=== PATIENT | male | born 1980 | race Caucasian/White ===

== ENCOUNTER 2022-04-02 10:06 | Outpatient (REF) | payer OTHER, SELFPAY ==
--- NOTE | ~2022-04-02 | XR_ITS ---
EXAMINATION: XR RIBS, RIGHT, WITH PA VIEW OF CHEST CLINICAL INFORMATION: Pleurodynia COMPARISON: None TECHNIQUE: 3 views of the right ribs. Also, PA view of chest.. FINDINGS: Lungs are well expanded. Linear opacity of scar or discoid atelectasis at the left lateral base. No airspace disease. No pneumothorax. The right lateral costophrenic sulcus is slightly blunted. Trace pleural effusion is suspected. Cardiomediastinal silhouette has normal size and contour. There appears to be an acute, nondisplaced fracture of the right anterolateral 10th rib. XR/XR ribs RT min 3V w CXR1V IMPRESSION: * No acute pulmonary disease. * Acute, nondisplaced fracture of the right anterolateral 10th rib. * Trace right pleural effusion is suspected.
[2022-04-02 11:58] LABS: Influenza A PCR NEGATIVE (Negative); Influenza B PCR NEGATIVE (Negative); Resp Syncy Virus RNA Qual PCR NEGATIVE (Negative); SARS COV2 PCR INHOUSE NEGATIVE (Negative)
== END 2022-04-02 10:07 | disposition home or self-care (01) ==
LOC: HO.HMGCX 10:06
PROVIDERS: PCP Family Medicine; Visit Provider Family Medicine
DX: Z20.822 Contact with and (suspected) exposure to COVID-19 (principal); R07.81 Pleurodynia; B34.9 Viral infection, unspecified
CPT/HCPCS: 0241U; 71101

== ENCOUNTER 2022-08-17 11:29 | Day surgery (SDC) | payer OTHER, SELFPAY ==
--- NOTE | 2022-08-16 14:29 | HO.ANESPROP2 ---
Documented by User: Marquita Pollock NP 08/16/22 14:29 HPI - Anesthesia Eval Consult details Narrative: 41yo M for Upper Endoscopy and Colonoscopy FOR[facility]LY [facility], [facility] Active Problems Active Problems: All Active Problems (Updated 08/13/22 @ 14:10 by Saima Collazo RN) Laboratory exam ordered as part of routine general medical examination (Acute) Abdominal pain (Acute) GERD (gastroesophageal reflux disease) (Acute) Skin mole (Acute) Right knee pain (Acute) Family history of colon cancer (Acute) Sleep apnea (Acute) Enlarged tonsils and adenoids (Acute) Loose stools (Acute) Rib pain on right side (Acute) Cough (Acute) Past Medical History Medical History Enlarged tonsils and adenoids GERD (gastroesophageal reflux disease) Sleep apnea Family History Family History (Updated 12/22/21 @ 13:46 by Samantha Menard PA-C) Mother Colon cancer, Onset Age: 50 Father Diabetes Surgical History Surgical History History of appendectomy Social History Social History Household Members Other:: single/ engaged- 2 kids Patient Tobacco Use Status: Never used Tobacco e-Cigarette/Vaping Use: Never Used Second Hand Smoke Exposure: No Current occupational status: employed Current occupational exposures/hazards: No Meds Allergies Allergy/AdvReac Type Severity Reaction Status Date / Time No Known Allergies Allergy Verified 08/17/22 11:43 Home Medications Medication Instructions Recorded Confirmed Last Taken Type omeprazole 20 mg tablet,delayed 20 mg PO USEASDIRECTD PRN Heartburn 08/17/22 08/17/22 Unknown History release Exam Exam Date and Time: August 16, 2022 142 Assessment and Plan Assessment Anesthesia Assessment: Chart Reviewed Documented by User: Johnathon Vann MD 08/17/22 18:17 [facility] Past Medical History Medical History Enlarged tonsils and adenoids GERD (gastroesophageal reflux disease) Sleep apnea Functional capacity: independent ambulation Family History Family History (Updated 12/22/21 @ 13:46 by Samantha Menard PA-C) Mother Colon cancer, Onset Age: 50 Father Diabetes Family history of problems with anesthesia: No Surgical History Surgical History History of appendectomy History of Problems with Anesthesia: No Social History Social History Household Members Other:: single/ engaged- 2 kids Patient Tobacco Use Status: Never used Tobacco e-Cigarette/Vaping Use: Never Used Second Hand Smoke Exposure: No Current occupational status: employed Current occupational exposures/hazards: No Meds Allergies Allergy/AdvReac Type Severity Reaction Status Date / Time No Known Allergies Allergy Verified 08/17/22 11:43 Home Medications Medication Instructions Recorded Confirmed Last Taken Type omeprazole 20 mg tablet,delayed 20 mg PO USEASDIRECTD PRN Heartburn 08/17/22 08/17/22 Unknown History release Exam Airway Mallampati Class: IV TM Dist: >3cm Neck ROM: Full Loose/Missing/Broken Teeth: Yes (chipped upper front ) Assessment and Plan Assessment Anesthesia Assessment: Anesthesia Plan Discussed Final Anesthetic Review Family History of Problems with Anesthesia: No History of Problems with Anesthesia: No NPO: Yes ASA Class: II Final Preanesthetic Review: Meds/Allgs Chart Reviewed, Consent Obtained/Reviewed and Anes Risks/Benef Reviewed Patient Risk: Intermediate Procedure Risk: Intermediate Anesthetic Plan Anesthetic Plan: MAC: and Agree w/ Assess. and Plan Disposition: Standard PACU
[2022-08-17 11:42] VITALS: BMI 27.3
[2022-08-17 12:35] VITALS: BP 137/87; PULSE 69; RESP 18; TEMP 36.7; O2SAT 97
[2022-08-17] MEDS: Lactated Ringers 1,000 ML 100 ML IVCONT (12:35)
--- NOTE | 2022-08-17 13:11 | MHC.SHP ---
Pre-Procedural Eval Section A Date of Service: 08/17/22 Section B Chief Complaint: GERD,Other fecal abnormalities Details of Present Illness: mother with CRC Relevant Family History (Specify if Yes): Yes Relevant Social History: Other (specify) (occ THc use) Present Medications: see Short Stay Collaborative assessment Medical History: Significant History (Enlarged tonsils and adenoids GERD (gastroesophageal reflux disease) Sleep apnea) History of Previous Operations: Relevant previous surgery/procedure and date(s) (appendectomy) Allergies: Allergies Allergy/AdvReac Type Severity Reaction Status Date / Time No Known Allergies Allergy Verified 08/17/22 11:43 Review of Systems Sugical H&P ROS: Negative: Constitution, Cardiovascular, Respiratory, Neurological, Psychiatric, Hem-Onc, Allergic/Immunologic, Gastrointestinal, Genitourinary, Musculoskeletal, Integumentary, Endocrine and Eyes/Ears/Nose/Throat Exam Surgical H&P Exam: Normal: HEENT, Normal: Heart, Normal: Lungs, Normal: Extremities, Normal: Abdomen, Normal: Skin and Normal: Neurological Plan Diagnosis/Plan: Unchanged I have reviewed the history and physical and performed a pertinent physical examination on my patient. No changes have occurred unless specified. Time Spent With Patient Time: Total time managing care of this patient today ____ minutes.
--- NOTE | 2022-08-17 13:38 | W.PM.OPN ---
Operative Note Operative Note Date of Service: 08/17/22 Narrative: Operative Information Procedure Description: EGD, Colonoscopy Indication: GERD and FH of CRC Anesthesia: MAC FLEXIBLE TRANSORAL UPPER GASTROINTESTINAL ENDOSCOPY AND COLONOSCOPY PROCEDURE NOTE UPPER ENDOSCOPY Consent: Indications for the procedure and potential complications of bleeding, perforation, reaction to medications and missed diagnosis were discussed with the patient and informed consent was obtained. Instrument: Olympus GIF H 190 J mid size upper endoscope Monitoring: Vital signs and clinical assessment, continuous EKG monitoring, Pulse oximetry, Carbon Dioxide monitoring and blood pressure monitoring were done throughout the procedure. Procedure: The patient was placed in the left lateral decubitis position and pre-procedure medications were administered and a bite block was placed. The endoscope was inserted into the mouth and advanced under direct vision to the third part of duodenum. A careful inspection was made as the upper endoscope was withdrawn including a retroflexed examination of the proximal stomach; Findings and interventions are described below. Findings: Larynx:normal Esophagus: GE junction at 37 cm, diaphragm hiatus at 40 cm, consistent with 3 cm sliding hiatal hernia. LA grade C erosive esophagitis noted with boggy mucosa at GEJ, bx taken Stomach: Mild erythema. Biopsies were obtained. Grade 2 flap valve on retroflexed examination of the cardia. Duodenum: Normal bulb and descending duodenum, bx taken Intervention: Biopsies as noted above COLONOSCOPY Instrument: Olympus variable stiffness pediatric scope 190L Colonoscopy Monitoring: Vital signs and clinical assessment, continuous EKG monitoring, Pulse oximetry, Carbon Dioxide monitoring and blood pressure monitoring were done throughout the procedure. Colon withdrawal time was 12 minutes. Procedure: The patient was placed in the left lateral decubitis position and pre-procedure medications were administered. After a digital rectal examination of the ano-rectum, the video colonoscope was inserted into the rectum and advanced through the colon to the cecum/TI. The colonoscope was slowly withdrawn in a retrograde panoramic fashion and the colon mucosa was carefully examined including a retroflexed view of the rectum. Findings and interventions are described below. Procedure Difficulty: moderate, needed pressure to reach cecum, looping Findings: Terminal Ileum- unable to intubate Cecum:normal Ascending Colon: normal Transverse Colon - 6-7 mm sessile polyp removed with cold snare Descending Colon:normal Sigmoid Colon: 5-6 mm sessile polyp removed with cold snare Rectum: Retroflexion with small internal hemorrhoids, grade I Anorectum - normal Colon preparation: [place] Bowel Preparation Scale Right colon; 2 Transverse colon: 2 Left colon; 2 (0 = Unprepared colon segment with mucosa not seen due to solid stool that cannot be cleared. 1 = Portion of mucosa of the colon segment seen, but other areas of the colon segment not well seen due to staining, residual stool and/or opaque liquid. 2 = Minor amount of residual staining, small fragments of stool and/or opaque liquid, but mucosa of colon segment seen well. 3 = Entire mucosa of colon segment seen well with no residual staining, small fragments of stool or opaque liquid) Impression and Post Procedure Diagnosis: Endoscopy Findings: hiatal hernia erosive esophagitis gastritis Colonoscopy Findings: polyps internal hemorrhoids Plan: Await Pathology results Repeat Colonoscopy in 3-5 years or earlier if clinically indicated, next time consider using adult scope High fiber diet leaflet avoid straining at stool, epsom salts and sitz bath, anusol supps or cream GERD precautions check compliance and timing with PPI , rept EGD in 3-6 months Above findings were reviewed with the patient and relevant handouts were provided if indicated.
[2022-08-17 14:42] VITALS: BP 144/80; PULSE 87; RESP 16; TEMP 36.4; O2SAT 97
[2022-08-17 14:57] VITALS: BP 138/78; PULSE 84; RESP 16; O2SAT 97
[2022-08-17 15:12] VITALS: BP 136/91; PULSE 63; RESP 16; TEMP 36.2; O2SAT 98
== END 2022-08-17 15:55 | disposition home or self-care (01) ==
PROVIDERS: PCP Family Medicine; Visit Provider Internal Medicine Gastroenterology
PROC: (CPT 45385; principal; 2022-08-17 13:10)
DX: R19.5 Other fecal abnormalities (principal); Z80.0 Family history of malignant neoplasm of digestive organs; K63.5 Polyp of colon; K64.0 First degree hemorrhoids; Q43.8 Other specified congenital malformations of intestine; K21.9 Gastro-esophageal reflux disease without esophagitis; K20.80 Other esophagitis without bleeding; K44.9 Diaphragmatic hernia without obstruction or gangrene; J35.3 Hypertrophy of tonsils with hypertrophy of adenoids; G47.30 Sleep apnea, unspecified; Z79.899 Other long term (current) drug therapy; F12.90 Cannabis use, unspecified, uncomplicated
CPT/HCPCS: 45385; 43239; 88305; 88342; J2250

== ENCOUNTER → 2022-08-31 12:55 | Outpatient (BNVA) | payer OTHER, SELFPAY | PROVIDERS: Visit Provider Physician Assistant ==

== ENCOUNTER 2023-01-18 13:00 | Day surgery (SDC) | payer OTHER, SELFPAY ==
[2022-11-30 13:54] VITALS: BMI 27.7
--- NOTE | 2022-12-01 11:59 | HO.ANESPROP2 ---
HPI - Anesthesia Eval Consult details Narrative: 42yo M for Upper Endoscopy PMFSH Active Problems Active Problems: All Active Problems (Updated 08/31/22 @ 13:31 by Samantha Menard PA-C) Erosive esophagitis (Acute) Laboratory exam ordered as part of routine general medical examination (Acute) Abdominal pain (Acute) GERD (gastroesophageal reflux disease) (Acute) Skin mole (Acute) Right knee pain (Acute) Family history of colon cancer (Acute) Sleep apnea (Acute) Enlarged tonsils and adenoids (Acute) Loose stools (Acute) Rib pain on right side (Acute) Cough (Acute) Past Medical History Medical History (Updated 08/31/22 @ 13:31 by Samantha Menard PA-C) GERD (gastroesophageal reflux disease) Enlarged tonsils and adenoids Sleep apnea Family History Family History Mother Colon cancer, Onset Age: 50 Father Diabetes Family history of problems with anesthesia: No Surgical History Surgical History History of appendectomy History of esophagogastroduodenoscopy (EGD) Hx of colonoscopy History of Problems with Anesthesia: No Social History Social History Household Members Other:: single/ engaged- 2 kids Patient Tobacco Use Status: Never used Tobacco e-Cigarette/Vaping Use: Never Used Second Hand Smoke Exposure: No Use of substances other than those prescribed or required for medical reasons: Yes Substance Use Frequency: Occasionally Are you DNR?: No Advance Directives: No Advance Directives Information Provided: Yes Advance Directives on File: No Nutrition Risks: No Nutritional Risk Current occupational status: employed Current occupational exposures/hazards: No Meds Allergies Allergy/AdvReac Type Severity Reaction Status Date / Time No Known Allergies Allergy Verified 08/31/22 13:10 Exam Exam Date and Time: December 01, 2022 1159 Height,Weight and Vital Signs: Height 6 ft 1 in Weight 95.254 kg Assessment and Plan Assessment Anesthesia Assessment: Chart Reviewed Final Anesthetic Review Family History of Problems with Anesthesia: No History of Problems with Anesthesia: No
--- NOTE | 2023-01-17 10:54 | HO.ANESPROP2 ---
Documented by User: Marquita Pollock NP 01/17/23 10:54 HPI - Anesthesia Eval Consult details Narrative: 42yo M for Upper Endoscopy PMFSH Active Problems Active Problems: All Active Problems (Updated 08/31/22 @ 13:31 by Samantha Menard PA-C) Erosive esophagitis (Acute) Laboratory exam ordered as part of routine general medical examination (Acute) Abdominal pain (Acute) GERD (gastroesophageal reflux disease) (Acute) Skin mole (Acute) Right knee pain (Acute) Family history of colon cancer (Acute) Sleep apnea (Acute) Enlarged tonsils and adenoids (Acute) Loose stools (Acute) Rib pain on right side (Acute) Cough (Acute) Past Medical History Medical History GERD (gastroesophageal reflux disease) Enlarged tonsils and adenoids Sleep apnea Family History Family History Mother Colon cancer, Onset Age: 50 Father Diabetes Family history of problems with anesthesia: No Surgical History Surgical History Hx of colonoscopy History of esophagogastroduodenoscopy (EGD) History of appendectomy History of Problems with Anesthesia: No Social History Social History Household Members Other:: single/ engaged- 2 kids Patient Tobacco Use Status: Never used Tobacco e-Cigarette/Vaping Use: Never Used Second Hand Smoke Exposure: No Use of substances other than those prescribed or required for medical reasons: Yes Substance Use Frequency: Occasionally Are you DNR?: No Advance Directives: No Advance Directives Information Provided: Yes Advance Directives on File: No Nutrition Risks: No Nutritional Risk Current occupational status: employed Current occupational exposures/hazards: No Meds Allergies Allergy/AdvReac Type Severity Reaction Status Date / Time No Known Allergies Allergy Verified 08/31/22 13:10 Home Medications Medication Instructions Recorded Confirmed Last Taken Type aspirin 81 mg tablet,delayed 81 mg PO DAILY 01/18/23 01/18/23 Unknown History release losartan 25 mg tablet 25 mg PO DAILY 01/18/23 01/18/23 Unknown History rosuvastatin 20 mg tablet 20 mg PO DAILY 01/18/23 01/18/23 Unknown History Exam Exam Date and Time: January 17, 2023 1054 Height,Weight and Vital Signs: Height 6 ft 1 in Weight 95.254 kg Assessment and Plan Assessment Anesthesia Assessment: Chart Reviewed Final Anesthetic Review Family History of Problems with Anesthesia: No History of Problems with Anesthesia: No Documented by User: Taylor Simmons MD 01/18/23 13:55 PMF Active Problems Active Problems: All Active Problems (Updated 01/18/23 @ 13:39 by Taylor Simmons MD) Erosive esophagitis (Acute) Laboratory exam ordered as part of routine general medical examination (Acute) Abdominal pain (Acute) GERD (gastroesophageal reflux disease) (Acute) Skin mole (Acute) Right knee pain (Acute) Family history of colon cancer (Acute) ?Sleep apnea (Acute)- not tested Enlarged tonsils and adenoids (Acute) Loose stools (Acute) Rib pain on right side (Acute) Cough (Acute) HTN Hyperlipidemia Past Medical History Medical History GERD (gastroesophageal reflux disease) Enlarged tonsils and adenoids Sleep apnea Family History Family History Mother Colon cancer, Onset Age: 50 Father Diabetes Surgical History Surgical History Hx of colonoscopy History of esophagogastroduodenoscopy (EGD) History of appendectomy Social History Social History Household Members Other:: single/ engaged- 2 kids Patient Tobacco Use Status: Never used Tobacco e-Cigarette/Vaping Use: Never Used Second Hand Smoke Exposure: No Use of substances other than those prescribed or required for medical reasons: Yes Substance Use Frequency: Occasionally Are you DNR?: No Advance Directives: No Advance Directives Information Provided: Yes Advance Directives on File: No Nutrition Risks: No Nutritional Risk Current occupational status: employed Current occupational exposures/hazards: No Meds Allergies Allergy/AdvReac Type Severity Reaction Status Date / Time No Known Allergies Allergy Verified 08/31/22 13:10 Home Medications Medication Instructions Recorded Confirmed Last Taken Type aspirin 81 mg tablet,delayed 81 mg PO DAILY 01/18/23 01/18/23 Unknown History release losartan 25 mg tablet 25 mg PO DAILY 01/18/23 01/18/23 Unknown History rosuvastatin 20 mg tablet 20 mg PO DAILY 01/18/23 01/18/23 Unknown History Exam Height,Weight and Vital Signs: Height 6 ft 1 in Weight 95.254 kg Vital Signs Temp Pulse Resp BP Pulse Ox O2 Del Method 01/18/23 13:21 97.6 F 80 16 124/84 97 Room Air Airway Mallampati Class: III TM Dist: >3cm Neck ROM: Full Loose/Missing/Broken Teeth: Yes (Broken tooth top front left. Denies loose teeth) Heart: RRR Lungs: CTAB Assessment and Plan Assessment Anesthesia Assessment: Anesthesia Plan Discussed Final Anesthetic Review NPO: Yes ASA Class: III Final Preanesthetic Review: No Changes in Pt Med Stat, Meds/Allgs Chart Reviewed, Consent Obtained/Reviewed and Anes Risks/Benef Reviewed Patient Risk: Intermediate Procedure Risk: Low Assessment/Block/Sedation in SS: Assess/Block/Sedation-SS Anesthetic Plan Anesthetic Plan: MAC: Disposition: Standard PACU
[2023-01-18 13:21] VITALS: BP 124/84; PULSE 80; RESP 16; TEMP 36.4; O2SAT 97
--- NOTE | 2023-01-18 13:34 | MHC.SHP ---
Pre-Procedural Eval Section A Date of Service: 01/18/23 Section B Chief Complaint: Ulcer of esophagus without bleeding Relevant Family History (Specify if Yes): No Relevant Social History: None Present Medications: see Short Stay Collaborative assessment Medical History: Significant History (Enlarged tonsils and adenoids GERD (gastroesophageal reflux disease) Sleep apnea) History of Previous Operations: Relevant previous surgery/procedure and date(s) (History of appendectomy History of esophagogastroduodenoscopy (EGD) Hx of colonoscopy) Allergies: Allergies Allergy/AdvReac Type Severity Reaction Status Date / Time No Known Allergies Allergy Verified 08/31/22 13:10 Review of Systems Sugical H&P ROS: Negative: Constitution, Cardiovascular, Respiratory, Neurological, Psychiatric, Hem-Onc, Allergic/Immunologic, Gastrointestinal, Genitourinary, Musculoskeletal, Integumentary, Endocrine and Eyes/Ears/Nose/Throat Exam Surgical H&P Exam: Normal: HEENT, Normal: Heart, Normal: Lungs, Normal: Extremities, Normal: Abdomen, Normal: Skin and Normal: Neurological Plan Diagnosis/Plan: Unchanged I have reviewed the history and physical and performed a pertinent physical examination on my patient. No changes have occurred unless specified. Time Spent With Patient Time: Total time managing care of this patient today ____ minutes.
[2023-01-18] MEDS: Lactated Ringers 1,000 ML 100 ML IVCONT (13:41)
--- NOTE | 2023-01-18 13:48 | W.PM.OPN ---
Operative Note Operative Note Date of Service: 01/18/23 Narrative: Procedure Description: EGD Indication: hx of esophagitis Anesthesia: MAC FLEXIBLE TRANSORAL UPPER GASTROINTESTINAL ENDOSCOPY UPPER ENDOSCOPY Consent: Indications for the procedure and potential complications of bleeding, perforation, reaction to medications and missed diagnosis were discussed with the patient and informed consent was obtained. Instrument: Olympus GIF H 190 J mid size upper endoscope Monitoring: Vital signs and clinical assessment, continuous EKG monitoring, Pulse oximetry, Carbon Dioxide monitoring and blood pressure monitoring were done throughout the procedure. Procedure: The patient was placed in the left lateral decubitis position and pre-procedure medications were administered and a bite block was placed. The endoscope was inserted into the mouth and advanced under direct vision to the third part of duodenum. A careful inspection was made as the upper endoscope was withdrawn including a retroflexed examination of the proximal stomach; Findings and interventions are described below. Findings: Larynx:normal Esophagus: GE junction at 37 cm, diaphragm hiatus at 40 cm, consistent with 3 cm sliding hiatal hernia. LA grade C erosive esophagitis noted with boggy mucosa at GEJ, and linear streaky erosions. Schatzki ring noted. Stomach: Normal mucosa. Grade 2 flap valve on retroflexed examination of the cardia. Duodenum: Normal bulb and descending duodenum, Intervention: none Impression/Findings: erosive esophagitis PLAN: increase PPI to BID and ensure compliance, repeat EGD in 3-6 months might need surgical evaluation if ongoing esophagitis
[2023-01-18 14:04] VITALS: BP 135/77; PULSE 79; RESP 14; TEMP 36.4; O2SAT 99
[2023-01-18 14:18] VITALS: BP 118/74; PULSE 72; RESP 16; TEMP 36.6; O2SAT 95
== END 2023-01-18 14:47 | disposition home or self-care (01) ==
PROVIDERS: PCP Internal Medicine; Visit Provider Internal Medicine Gastroenterology
PROC: 0DJ08ZZ Inspection of Upper Intestinal Tract, Via Natural or Artificial Opening Endoscopic (ICD-10-PCS; CPT 43235; principal; 2023-01-18 15:00)
DX: K22.10 Ulcer of esophagus without bleeding (principal); K44.9 Diaphragmatic hernia without obstruction or gangrene; K22.2 Esophageal obstruction; K22.89 Other specified disease of esophagus; K21.9 Gastro-esophageal reflux disease without esophagitis; G47.30 Sleep apnea, unspecified; Z79.82 Long term (current) use of aspirin; Z79.899 Other long term (current) drug therapy
CPT/HCPCS: 43235; J3010

== ENCOUNTER → 2023-01-18 13:00 | Outpatient (BNV) | payer OTHER, SELFPAY | PROVIDERS: PCP Internal Medicine; Visit Provider Internal Medicine Gastroenterology | DX: K22.2 Esophageal obstruction (principal); K20.80 Other esophagitis without bleeding | CPT/HCPCS: 43235 ==